=== PATIENT | male | born 1995 | race Two or more races ===

== ENCOUNTER 2022-03-24 11:21 | Emergency (ER) | payer SELFPAY ==
[~2022-03-24] VITALS: Ht 177.8 cm; Wt 73.9 kg
--- NOTE | 2022-03-24 11:30 | NUR ---
bibsetulio c/o left shoulder dislocation after falling from the skateboard. denies LOC
--- NOTE | 2022-03-24 11:32 | NUR ---
established iv line right forearm 20 g infusing well
--- NOTE | 2022-03-24 11:35 | NUR ---
at bed side for eval ,
[2022-03-24] MEDS ORDERED: MORPHINE SULFATE INJ 2 MG/ML DISP.SYRIN ONE ×2 (11:38→11:56)
--- NOTE | 2022-03-24 11:47 | NUR ---
xray at bedside
[2022-03-24] MEDS ORDERED: KETOROLAC TROMETHAMINE INJ 30 MG/ML VIAL ONE (11:56)
[2022-03-24] MEDS ORDERED: KETOROLAC TROMETHAMINE INJ 30 MG/ML VIAL IV ONE (12:00)
[2022-03-24] MEDS ORDERED: MORPHINE SULFATE INJ 2 MG/ML DISP.SYRIN IV ONE ×2 (12:00)
--- NOTE | 2022-03-24 12:03 | NUR ---
medicated as order
--- NOTE | 2022-03-24 12:24 | NUR ---
left shoulder reduction performed by Dr. Stuart at bedside without sedation. tehnician called for post reduction xray
--- NOTE | 2022-03-24 12:25 | NUR ---
left shoulder splint placed
--- NOTE | 2022-03-24 13:10 | NUR ---
Patient discharged to home in stable condition. Written and verbal after care instructions given. Patient verbalizes understanding of instruction.
--- NOTE | 2022-03-24 13:10 | NUR ---
IV removed. Catheter intact and site benign. Pressure and 4x4 applied to site. No bleeding noted.
[2022-03-24 13:11] VITALS: BP 136/79
== END 2022-03-24 13:13 | disposition home or self-care (01) ==
LOC: ER 11:39
DX: S43.015A Anterior dislocation of left humerus, initial encounter (principal); V00.131A Fall from skateboard, initial encounter; Y93.51 Activity, roller skating (inline) and skateboarding; Y92.89 Other specified places as the place of occurrence of the external cause; Y99.8 Other external cause status
CPT/HCPCS: 99284; 23650; 96374; 96375; 73030 ×2; J1885; J2270 ×2